=== PATIENT | female | born 1975 | race Caucasian/White ===

== ENCOUNTER → 2017-08-21 | Outpatient (CLI) | payer OTHER ==
[2016-05-27 12:30] VITALS: BP 116/72
[~2017-08-21] MED LIST: ALBU8.5H8 IH; CIPR500T94 PO; CYCL-331 PO; GABA-586 PO; HYDR-2758 PO; METF850T2 PO; METR500T PO; NIFE60TA PO; ONDA4TAB10 PO; PRAV20TA PO; RANI150T6 PO
--- NOTE | 2017-08-21 12:04 | RAD ---
Lumbar spine, 3 views, 08/21/2017: History: Low back pain There are bilateral pedicle screws in place at L4 and L5 attached to longitudinally oriented posterior fixation rods. A partially radiopaque disc pacer is present at L4-5. There is a mild grade 1 spondylolisthesis at L4-5. The lumbar vertebral heights are well-maintained. There are mild scattered marginal spurs. There is mild disc space narrowing at L5-S1 with a vacuum disc phenomena and mild marginal spurring. Facet joint arthropathy is evident in the lower lumbar spine. Aortic calcific plaquing is present. IMPRESSION: 1. Previous posterior spinal fusion and instrumentation at L4-5. 2. Mild grade 1 spondylolisthesis at L4-5. 3. Moderate degenerative disc disease at L5-S1.
== END | disposition home or self-care (01) ==
LOC: DXRADRC 11:03
PROVIDERS: ATTEND Neurological Surgery
DX: M43.16 Spondylolisthesis, lumbar region (principal); M51.37 Other intervertebral disc degeneration, lumbosacral region; Z98.1 Arthrodesis status
CPT/HCPCS: 72100

== ENCOUNTER → 2017-11-17 | Outpatient (CLI) | payer OTHER ==
[2016-05-27 12:30] VITALS: BP 116/72
[~2017-11-17] MED LIST changes: +RANI150T21 PO; -RANI150T6 PO
--- NOTE | 2017-11-17 13:05 | RAD ---
Lumbar spine, 2 views, 11/17/2017: HISTORY: Follow-up spinal fusion Comparison is made to a study from 08/21/2017. There are bilateral pedicle screws at L4 and L5 attached to longitudinally oriented posterior fixation rods. A partially radiopaque disc spacer is present at L4-5. There is a mild grade 1 anterolisthesis at L4-5 which appears unchanged. Moderate disc space narrowing and spurring with a vacuum disc phenomena is again noted at L5-S1. There are mild scattered spurs in the upper lumbar and lower thoracic spine. No new bony abnormality is detected. Aortic calcific plaquing is present. IMPRESSION: 1. Stable postsurgical findings at L4-5 with an unchanged grade 1 spondylolisthesis at that level. 2. Moderate degenerative disc disease at L5-S1. 3. No new abnormality is detected. Electronically signed by: Morteza Caballero MD (11/17/2017 1:02 PM) [facility]
== END | disposition home or self-care (01) ==
LOC: DXRAD 11:19
PROVIDERS: ATTEND Neurological Surgery
DX: M43.16 Spondylolisthesis, lumbar region (principal); M51.37 Other intervertebral disc degeneration, lumbosacral region; M48.07 Spinal stenosis, lumbosacral region; I10 Essential (primary) hypertension; E11.9 Type 2 diabetes mellitus without complications
CPT/HCPCS: 72100

== ENCOUNTER → 2018-06-16 | Outpatient (CLI) | payer OTHER ==
[2016-05-27 12:30] VITALS: BP 116/72
[~2018-06-16] MED LIST changes: +ALBU2.5V8 IH; -ALBU8.5H8 IH; +HYDR-2155 PO; -HYDR-2758 PO; -METF850T2 PO; +METF850T8 PO; +RANI-376 PO; -RANI150T21 PO
--- NOTE | 2018-06-16 13:45 | RAD ---
Indication: Neck pain TECHNIQUE: Multiple views of the cervical spine COMPARISON: None FINDINGS: The cervical spine is in normal anatomic alignment. Atlantoaxial joint or is preserved. Prevertebral soft tissues within normal limits. Facet joints are in normal anatomic alignment. Mild intervertebral disc space narrowing seen at C5-6 with small anterior ridging osteophytes. IMPRESSION: Mild to moderate C5-C6 degenerative disc disease. Electronically signed by: Reuben Mares DO (06/16/2018 1:41 PM) [id number]
--- NOTE | 2018-06-16 13:51 | RAD ---
Indication: Neck and back pain TECHNIQUE: Multiple views of the thoracic spine COMPARISON: None FINDINGS: Thoracic spine is in normal anatomic alignment. No compression deformities. No significant intervertebral disc space narrowing. No symmetric and osteophyte formation. Heart is normal in size. Visualized lungs are clear. IMPRESSION: No acute findings in the thoracic spine. Electronically signed by: Reuben Mares DO (06/16/2018 1:47 PM) [id number]
[2018-06-16 14:41] LABS: BASO # 0.1 x10^3/uL (0.0-0.2); BASO % 1 % (0-3); EOS # 0.2 x10^3/uL (0.0-0.7); EOS % 2 % (0-3); HEMATOCRIT 44.8 % (36.0-47.0); HEMOGLOBIN 14.6 g/dL (12.0-15.5); LYMPH # 1.9 x10^3/uL (1.0-4.8); LYMPH % 24 % (24-48); MEAN CORPUSCULAR HEMOGLOBIN 26 pg (25-35); MEAN CORPUSCULAR HGB CONC 33 g/dL (31-37); MEAN CORPUSCULAR VOLUME 79 fL (79-100); MONO # 0.4 x10^3/uL (0.0-1.1); MONO % 5 % (0-9); NEUT # 5.5 x10^3uL (1.8-7.7); NEUT % 68 % (31-73); PLATELET COUNT 270 x10^3/uL (140-400); RED BLOOD COUNT 5.69 x10^6/uL (3.50-5.40); RED CELL DISTRIBUTION WIDTH 15.4 % (11.5-14.5); WHITE BLOOD COUNT 8.1 x10^3/uL (4.0-11.0)
[2018-06-16 14:58] LABS: ALBUMIN 3.7 g/dL (3.4-5.0); ALBUMIN/GLOBULIN RATIO 0.9 (1.0-1.7); CREATININE 0.8 mg/dL (0.6-1.0); GFR 77.9; POTASSIUM 3.9 mmol/L (3.5-5.1); TOTAL BILIRUBIN 0.3 mg/dL (0.2-1.0)
[2018-06-17 13:27] LABS: THYROID STIM HORMONE (TSH) 2.029 uIU/mL (0.358-3.740)
--- NOTE | 2018-06-18 13:20 | RAD ---
DATE: 06/16/2018 EXAM: MAMMO MAHI SCREENING BILATERAL HISTORY: Routine screening COMPARISON: 03/22/2014 screen mammographic exam performed at [facility] This study was interpreted with the benefit of Computerized Aided Detection (CAD). Breast Density: SCATTERED The breast parenchyma shows scattered fibroglandular densities. Breast parenchyma level B. FINDINGS: CC and MLO views of each breast were obtained . Tomosynthesis imaging performed. Multiple very small masses are present bilaterally. No dominant mass. No distortion. Benign calcifications are present. IMPRESSION: Benign findings. BI-RADS CATEGORY: 2 BENIGN FINDING(S) RECOMMENDED FOLLOW-UP: 12M 12 MONTH FOLLOW-UP PQRS compliance statement: Patient information was entered into a reminder system with a target due date in one year for the next mammogram. Mammography is a sensitive method for finding small breast cancers, but it does not detect them all and is not a substitute for careful clinical examination. A negative mammogram does not negate a clinically suspicious finding and should not result in delay in biopsying a clinically suspicious abnormality. "Our facility is accredited by the [employer] Mammography Program."
== END | disposition home or self-care (01) ==
LOC: MAMMO 12:59
PROVIDERS: ATTEND Family Medicine
DX: Z12.31 Encounter for screening mammogram for malignant neoplasm of breast (principal); Z11.4 Encounter for screening for human immunodeficiency virus [HIV]; M50.322 Other cervical disc degeneration at C5-C6 level; M48.02 Spinal stenosis, cervical region; M54.6 Pain in thoracic spine; E11.69 Type 2 diabetes mellitus with other specified complication; E78.5 Hyperlipidemia, unspecified; E11.59 Type 2 diabetes mellitus with other circulatory complications; I10 Essential (primary) hypertension; Z88.8 Allergy status to other drugs, medicaments and biological substances
CPT/HCPCS: 36415; 72040; 72072; 77063; 77067; 80053; 80061; 84443; 85025; 86703

== ENCOUNTER → 2018-10-12 | Outpatient (CLI) | payer OTHER ==
[2016-05-27 12:30] VITALS: BP 116/72
[~2018-10-12] MED LIST changes: -RANI-376 PO; +RANI150T21 PO
--- NOTE | 2018-10-12 16:49 | RAD ---
Three-view lumbar spine series Clinical indications: Low back pain. Right radiculopathy. FINDINGS: Grade 1-2 anterolisthesis of L4-5 is seen. Bilateral transpedicular screws are seen at L4 and L5 connected by 2 vertical metallic stabilizer bars. Interbody disc space fusion device is seen within the L4-5 disc space. No compression fracture or discitis or lytic process is evident. There is degenerative endplate spurring and disc space narrowing at T12-L1 and L5-S1. The transverse processes are intact. IMPRESSION: Grade 1-2 anterolisthesis of L4-5. L4-5 fusion. There has been no significant change from August 21, 2017. Electronically signed by: Richi Hodges MD (10/12/2018 4:46 PM) [id number]
== END | disposition home or self-care (01) ==
LOC: DXRAD 11:48
PROVIDERS: ATTEND Neurological Surgery
DX: M43.16 Spondylolisthesis, lumbar region (principal); M43.26 Fusion of spine, lumbar region; M48.07 Spinal stenosis, lumbosacral region; M46.05 Spinal enthesopathy, thoracolumbar region
CPT/HCPCS: 72100